=== PATIENT | female | born 1985 | race African-American/Black ===

== ENCOUNTER 2016-10-01 10:02 | Day surgery (SDC) | payer OTHER ==
[2016-09-30 13:47] VITALS: BMI 41.5
[2016-10-01] MEDS ORDERED: PROPOFOL 20 ML ONE ×2 (10:24→11:08)
[2016-10-01 11:08] VITALS: TEMP 97.6
[2016-10-01 11:34] VITALS: PULSE 63
[2016-10-01 12:23] VITALS: BP 117/69
== END 2016-10-01 12:00 | disposition home or self-care (01) ==
LOC: JASU-ENDO 10:02
PROVIDERS: ATTEND Internal Medicine Gastroenterology
PROC: 0DJD8ZZ Inspection of Lower Intestinal Tract, Via Natural or Artificial Opening Endoscopic (ICD-10-PCS; principal; 2016-10-01 11:00)
DX: K62.5 Hemorrhage of anus and rectum (principal)
CPT/HCPCS: 84703